=== PATIENT | female | born 1945 | race Caucasian/White ===

== ENCOUNTER 2023-05-26 14:59 | Outpatient (CLI) | payer MEDICARE | END 2023-05-26 15:00 | disposition home or self-care (01) | LOC: BICMAMMO 14:59 | PROVIDERS: ATTEND Internal Medicine | DX: Z12.31 Encounter for screening mammogram for malignant neoplasm of breast (principal) | CPT/HCPCS: 77063; 77067 ==

== ENCOUNTER 2023-10-14 14:53 | Inpatient (IN) | payer MEDICARE ==
[2023-10-14 15:47] LABS: #Monocytes 1.2 thou/uL (0.11-0.59); #Neutrophils 15.2 thou/uL (1.40-6.50); %Basophils 0.1 % (0.0-1.0); %Lymphocytes 3.4 % (21.0-51.0); %Monocytes 7.1 % (0.0-10.0); %Neutrophils 88.7 % (42.0-75.0); Hematocrit 33.7 % (36.0-47.0); Hemoglobin 11.2 g/dL (12.0-16.0); Mean Corpuscular HGB CONC 33.2 g/dL (32.0-36.0); Mean Corpuscular Hemoglobin 30.5 pg (27.0-31.0); Mean Corpuscular Volume 91.8 fl (78.0-98.0); Mean Platelet Volume 8.4 fL (7.4-10.4); Platelet Count 341 10x3/uL (130-400); RBC Distribution Width 13.9 % (11.5-14.5); Red Blood Cell (RBC) Count 3.67 mill/uL (4.20-5.40); White Blood Cell (WBC) Count 17.1 10x3/uL (4.8-10.8)
[2023-10-14] MEDS ORDERED: Azithromycin 500 MG VIAL ONE (15:58)
[2023-10-14] MEDS ORDERED: Sodium Chloride 0.9% 100 ML ONE (15:58)
[2023-10-14] MEDS ORDERED: cefTRIAXone (ROCEPHIN) 2 GM VIAL ONE (15:58)
[2023-10-14 16:18] LABS: Critical Call Chem Troponin I NUR.LM21@1617; Troponin I 0.255 ng/mL (< 0.028)
[2023-10-14 16:38] LABS: ALT (SGPT) 22 U/L (8-55); AST (SGOT) 31 U/L (5-34); Albumin 3.1 g/dL (3.4-4.8); Alkaline Phosphatase 104 U/L (40-110); Anion Gap 15 mmol/L (10-20); BUN (Urea Nitrogen) 17 mg/dL (9.8-20.1); Bilirubin, Total 0.6 mg/dL (0.2-1.2); CK (CPK) 153 U/L (29-168); Calc. Creatinine Clearance 0 mL/min (70-130); Calcium 7.9 mg/dL (7.8-10.44); Carbon Dioxide 18 mmol/L (23-31); Chloride 99 mmol/L (98-107); Estimated GFR 86; Globulin 2.6 g/dL (2.4-3.5); Glucose 101 mg/dL (83-110); Protein, Total 5.7 g/dL (5.8-8.1); Sodium 130 mmol/L (136-145)
[2023-10-14 16:45] LABS: Critical Call Chemistry NUR.LM21@1644; Potassium 2.4 mmol/L (3.5-5.1)
[2023-10-14 17:09] LABS: SARS-CoV-2 NAA Rapid Test Not Detected (NotDetected)
[2023-10-14] MEDS ORDERED: Aspirin Chewable 81 MG TAB ONE (17:56)
[2023-10-14] MEDS ORDERED: Potassium Chloride 20 MEQ TAB ONE (17:56)
[2023-10-14 17:58] LABS: Magnesium 1.9 mg/dL (1.6-2.6)
[2023-10-14] MEDS ORDERED: Ondansetron ODT 4 MG TAB PO PRN (18:16)
[2023-10-14] MEDS ORDERED: Acetaminophen 650 MG Suppository PR PRN (18:16)
[2023-10-14] MEDS ORDERED: Ondansetron PF 4 MG/2 ML Vial IVP PRN (18:16)
[2023-10-14] MEDS ORDERED: Nitroglycerin 0.4 MG TAB (25 Tab Bottle) SL PRN (18:20)
[2023-10-14] MEDS ORDERED: Electrolyte Replacement Protocol 1 EACH FS SCH (18:30)
[2023-10-14] MEDS ORDERED: Loratadine 10 MG TAB PO PRN (18:40)
[2023-10-14] MEDS ORDERED: Ipratropium/Albuterol 3 ML NEB NEB PRN (18:40)
[2023-10-14] MEDS ORDERED: GUAIFENESIN SF SOLN 200 MG/10 ML UDCUP PO PRN (18:40)
[2023-10-14] MEDS ORDERED: Benzonatate 100 MG CAP PO PRN (18:40)
[2023-10-14] MEDS ORDERED: Sodium Chloride 0.65% Nasal 44 ML BOT EA NARE PRN (18:40)
[2023-10-14 20:20] LABS: Troponin I 0.183 ng/mL (< 0.028)
[2023-10-14] MEDS ORDERED: Magnesium 2 GM/50 ML(in water) 2 GM in Premix 1 BAG IVPB SCH ×2 (21:00→21:30)
[2023-10-14] MEDS: Famotidine 20 MG TAB PO SCH (21:38)
[2023-10-14] MEDS ORDERED: Potassium Chloride 20 MEQ TAB PO SCH (22:00)
[2023-10-15 00:12] VITALS: BMI 31.0
[2023-10-15] MEDS: Acetaminophen 325 MG TAB PO PRN ×2 (00:59→14:47)
[2023-10-15 04:13] LABS: Bacteria/HPF 4+ HPF (None Seen); Bilirubin Negative (Negative); Blood, Urine 1+ (Negative); CAUTI Indications for Culture Fever or rigors; Clarity Extra Turbid (Clear); Glucose, Urine (Dipstick) Normal (Negative); Ketone, Urine Negative (Negative); Leukocyte 75 Leu/uL (Negative); Nitrite Negative (Negative); Protein, Urine (Dipstick) 30 mg/dL (Neg-Trace); Specific Gravity, Urine 1.013 (1.002-1.036); Urobilinogen 6 mg/dL (Less than 2)
[2023-10-15 04:22] LABS: Urine Culture Reflex Yes Yes
[2023-10-15 04:27] LABS: Legionella Urinary Ag Negative (Negative); Strep pneumo Urine Ag POSITIVE (NEGATIVE)
[2023-10-15 07:57] LABS: #Monocytes 0.8 thou/uL (0.11-0.59); #Neutrophils 12.2 thou/uL (1.40-6.50); %Basophils 0.2 % (0.0-1.0); %Eosinophils 0.1 % (0.0-10.0); %Lymphocytes 6.5 % (21.0-51.0); %Monocytes 5.8 % (0.0-10.0); %Neutrophils 86.6 % (42.0-75.0); Hematocrit 34.2 % (36.0-47.0); Hemoglobin 11.4 g/dL (12.0-16.0); Mean Corpuscular HGB CONC 33.3 g/dL (32.0-36.0); Mean Corpuscular Hemoglobin 30.6 pg (27.0-31.0); Mean Corpuscular Volume 91.9 fl (78.0-98.0); Mean Platelet Volume 8.2 fL (7.4-10.4); Platelet Count 338 10x3/uL (130-400); RBC Distribution Width 14.4 % (11.5-14.5); Red Blood Cell (RBC) Count 3.72 mill/uL (4.20-5.40)
[2023-10-15 08:05] LABS: Hemoglobin A1c 5.8 % (4.0-6.0)
[2023-10-15 08:20] LABS: Anion Gap 11 mmol/L (10-20); BUN (Urea Nitrogen) 15 mg/dL (9.8-20.1); Calc. Creatinine Clearance 72 mL/min (70-130); Calcium 8.1 mg/dL (7.8-10.44); Carbon Dioxide 20 mmol/L (23-31); Cardiac Risk 5.9 (Less than 4.5); Chloride 104 mmol/L (98-107); Cholesterol 154 mg/dl (< 200 Desired); Estimated GFR 84; Glucose 95 mg/dL (83-110); HDL Cholesterol 26 mg/dL (>60 Neg Risk); LDL Cholesterol, Calculated 105 mg/dL; Magnesium 2.8 mg/dL (1.6-2.6); Potassium 2.9 mmol/L (3.5-5.1); Sodium 132 mmol/L (136-145); Triglycerides 116 mg/dL (Less than 150)
[2023-10-15] MEDS: Potassium Chloride 20 MEQ TAB PO SCH ×2 (11:13→14:50)
[2023-10-15] MEDS: Aspirin Chewable 81 MG TAB PO SCH (11:16)
[2023-10-15] MEDS: Famotidine 20 MG TAB PO SCH ×3 (11:16→20:07)
[2023-10-15] MEDS: Potassium Bicarbonate/Cit Ac 20 MEQ TAB PO SCH ×2 (14:45→14:49)
[2023-10-15] MEDS ORDERED: cefTRIAXone\\ROCEPHIN 1 GM in Sodium Chloride 0.9% 100 ML IVPB SCH (15:00)
[2023-10-15] MEDS ORDERED: Azithromycin 500 MG in Sodium Chloride 0.9% 250 ML 250 ML IVPB SCH (16:00)
[2023-10-16 05:12] LABS: Troponin I 0.051 ng/mL (< 0.028)
[2023-10-16 08:45] LABS: #Basophils 0.1 thou/uL (0.0-0.2); #Eosinphils 0.4 thou/uL (0.0-0.7); #Neutrophils 6.3 thou/uL (1.40-6.50); %Basophils 0.6 % (0.0-1.0); %Eosinophils 3.7 % (0.0-10.0); %Lymphocytes 17.9 % (21.0-51.0); %Monocytes 10.4 % (0.0-10.0); %Neutrophils 65.4 % (42.0-75.0); Hematocrit 38.4 % (36.0-47.0); Hemoglobin 12.8 g/dL (12.0-16.0); Mean Corpuscular HGB CONC 33.3 g/dL (32.0-36.0); Mean Corpuscular Hemoglobin 30.3 pg (27.0-31.0); Mean Corpuscular Volume 90.8 fl (78.0-98.0); Mean Platelet Volume 8.6 fL (7.4-10.4); Platelet Count 371 10x3/uL (130-400); RBC Distribution Width 14.8 % (11.5-14.5); Red Blood Cell (RBC) Count 4.23 mill/uL (4.20-5.40); White Blood Cell (WBC) Count 9.7 10x3/uL (4.8-10.8)
[2023-10-16] MEDS: Famotidine 20 MG TAB PO SCH (09:01)
[2023-10-16] MEDS: Aspirin Chewable 81 MG TAB PO SCH (09:05)
[2023-10-16 09:14] LABS: Anion Gap 14 mmol/L (10-20); BUN (Urea Nitrogen) 16 mg/dL (9.8-20.1); Calc. Creatinine Clearance 84 mL/min (70-130); Carbon Dioxide 14 mmol/L (23-31); Chloride 108 mmol/L (98-107); Estimated GFR 91; Glucose 90 mg/dL (83-110); Potassium 4.1 mmol/L (3.5-5.1); Sodium 132 mmol/L (136-145)
[2023-10-16 11:56] VITALS: TEMP 97.6
[2023-10-16 12:32] VITALS: BP 110/57
== END 2023-10-16 15:00 | disposition home or self-care (01) | DRG 871 ==
LOC: ERS 14:53 → 2NO 18:09
PROVIDERS: ADMIT Internal Medicine; ATTEND Internal Medicine
DX: A41.9 Sepsis, unspecified organism (principal); I21.4 Non-ST elevation (NSTEMI) myocardial infarction; J18.9 Pneumonia, unspecified organism; I10 Essential (primary) hypertension; Z90.710 Acquired absence of both cervix and uterus; Z98.890 Other specified postprocedural states; Z82.49 Family history of ischemic heart disease and other diseases of the circulatory system; E87.6 Hypokalemia; Z11.52 Encounter for screening for COVID-19; Z79.82 Long term (current) use of aspirin; Z79.899 Other long term (current) drug therapy
CPT/HCPCS: 36415; 70450; 71045; 80048; 80053; 80061; 81001; 82550; 83036; 83605; 83735; 83880; 84443; 84484; 85025; 87040; 87086; 87449; 87899; 93005; 93306; 94760; 96365; 96368; J0456; J0696; J3475; J3490; J7050

== ENCOUNTER 2024-08-07 14:46 | Outpatient (CLI) | payer MEDICARE | END 2024-08-07 14:47 | disposition home or self-care (01) | LOC: BICMAMMO 14:46 | PROVIDERS: ATTEND Internal Medicine | DX: Z12.31 Encounter for screening mammogram for malignant neoplasm of breast (principal); N64.89 Other specified disorders of breast | CPT/HCPCS: 77063; 77067 ==

== ENCOUNTER 2024-08-23 14:11 | Outpatient (CLI) | payer MEDICARE | END 2024-08-23 14:12 | disposition home or self-care (01) | LOC: BICMAMMO 14:11 | PROVIDERS: ATTEND Internal Medicine | DX: N64.89 Other specified disorders of breast (principal); N63.23 Unspecified lump in the left breast, lower outer quadrant | CPT/HCPCS: 76642; 77065; G0279 ==